=== PATIENT | male | born 1980 | race Caucasian/White ===

== ENCOUNTER → 2020-03-27 | Emergency (ER) | payer SELFPAY ==
[~2020-03-27] VITALS: Ht 182.9 cm; Wt 97.5 kg
[~2020-03-27] MED LIST: TETANUS-DIPTH-ACEL PERTUSSIS 0.5ML SYR Tdap IM ONE
[2020-03-27 20:22] VITALS: BP 137/75
== END | disposition home or self-care (01) ==
LOC: ER 19:49
DX: S61.411A Laceration without foreign body of right hand, initial encounter (principal); W26.0XXA Contact with knife, initial encounter; Y93.89 Activity, other specified; Y92.89 Other specified places as the place of occurrence of the external cause; Y99.8 Other external cause status
CPT/HCPCS: 12002; 90471; 90715